=== PATIENT | female | born 1960 | race Two or more races ===

== ENCOUNTER 2017-01-11 09:19 | Emergency (ER) | payer MEDICAID, OTHER ==
[~2017-01-11] VITALS: Ht 152.4 cm; Wt 59.0 kg
[~2017-01-11 09:19] MED LIST: ALBUTEROL SULF8.5 GM INH; CELEXA20 MG PO; CIPRO500 MG PO; CIPROFLOXACIN500 M2 ORAL; IBUPROFEN600 MG ORAL; KLONOPIN0.5 MG PO; PHENAZOPYRIDIN100 MG ORAL; PROMETHAZINE-C118 M1 ORAL; TAMIFLU75 MG ORAL; TYLENOL EXTRA500 MG ORAL; ZOFRAN4 MG ORAL
[2017-01-11 09:25] VITALS: BP 107/73
[2017-01-11] MEDS ORDERED: NKM (09:29)
[2017-01-11 09:59] LABS: APPEARANCE,URINE CLEAR; KETONES,URINE NEGATIVE (NEGATIVE); LEUKOCYTE ESTERASE ,URINE 1+ (NEGATIVE); NITRITE,URINE NEGATIVE (NEGATIVE); PH,URINE 7 (4.5-8.0); PROTEIN,URINE NEGATIVE (NEGATIVE); UROBILINOGEN,URINE NORMAL MG/DL (0.0-1.0)
[2017-01-11 10:10] LABS: BACTERIA,URINE FEW /HPF; RBC,URINE 15-20 /HPF (0 - 2); SQUAMOUS EPITHELIAL CELL,UR FEW /LPF (NONE/OCC)
[2017-01-11] MEDS ORDERED: NITROFURANTOIN100 M2 ORAL (10:48)
[2017-01-11] MEDS ORDERED: ZOFRAN ODT4 MG ORAL (10:56)
[2017-01-11] MEDS ORDERED: PHENAZOPYRIDIN100 MG ORAL (10:56)
[2017-01-11 11:05] VITALS: BP 107/73
--- NOTE | 2017-01-12 08:04 | Emergency Room Report ---
History of Present Illness General Chief Complaint: Female Urogenital Problems Source: Patient Present Illness HPI Patient presents with complaints of dysuria or frequency patient feels that symptoms have been ongoing now for the past 7 days Patient also reported that she was having increased nausea with this Lower back cramping denies any fevers or chills Denies any chest pain or shortness of breath denies any fall or trauma Denies any blood in the urine Allergies: Coded Allergies: No Known Allergies (Unverified , 09/26/12) Patient History Past Medical History: see triage record Pertinent Family History: none Last Menstrual Period: menopause Reviewed Nursing Documentation: PMH: Agreed, PSxH: Agreed Nursing Documentation-PMH Past Medical History: No Stated History Review of Systems All Other Systems: negative except mentioned in HPI Physical Exam Vital Signs Date Time Temp Pulse Resp B/P Pulse Ox O2 Delivery O2 Flow Rate FiO2 01/11/17 09:25 99.1 81 16 107/73 96 Room Air Sp02 EP Interpretation: reviewed, normal General Appearance: well appearing, no apparent distress Head: normocephalic, atraumatic Eyes: bilateral eye EOMI, bilateral eye PERRL ENT: hearing grossly normal, normal pharynx, TMs + canals normal, uvula midline Neck: full range of motion, supple, no meningismus, no bony tend Respiratory: lungs clear, normal breath sounds, no rhonchi, no respiratory distress, no retraction, no accessory muscle use Cardiovascular #1: normal peripheral pulses, regular rate, rhythm, no edema, no gallop, no JVD, no murmur Gastrointestinal: normal bowel sounds, soft, no mass, no organomegaly, non- distended, no guarding, no hernia, no pulsatile mass, no rebound, other - Mild discomfort over the suprapubic area Genitourinary: no CVA tenderness Musculoskeletal: normal inspection Neurologic: oriented x3, responsive, unarmed security officer III-XII nml as tested, motor strength/ tone normal, sensory intact Psychiatric: mood/affect normal Skin: normal color, no rash, warm/dry, palpation normal Lymphatic: normal inspection, no adenopathy Medical Decision Making Diagnostic Impression: Primary Impression: uti ER Course Patient's urine sample shows small amount of blood This is concerning for possible early infectious pathology Given the clinical exam and the history Patient will have initial conservative trial on oral antibiotics however it is discussed With her and the patient's daughter, that with any worsening symptoms they to return to the emergency room more emergently, as this could be signs of other intra-abdominal pathology Labs Test 01/11/17 09:35 Urine Color Pale yellow Urine Appearance Clear Urine pH 7 (4.5-8.0) Urine Specific [place] 1.005 (1.005-1.035) Urine Protein Negative (NEGATIVE) Urine Glucose (UA) Negative (NEGATIVE) Urine Ketones Negative (NEGATIVE) Urine Occult Blood 3+ (NEGATIVE) Urine Nitrite Negative (NEGATIVE) Urine Bilirubin Negative (NEGATIVE) Urine Urobilinogen Normal MG/DL (0.0-1.0) Urine Leukocyte Esterase 1+ (NEGATIVE) Urine RBC 15-20 /HPF (0 - 2) Urine WBC 2-4 /HPF (0 - 2) Urine Squamous Epithelial Cells Few /LPF (NONE/OCC) Urine Bacteria Few /HPF (NONE) Last Vital Signs Date Time Temp Pulse Resp B/P Pulse Ox O2 Delivery O2 Flow Rate FiO2 01/11/17 11:05 99.1 81 16 107/73 96 Room Air Status: unchanged Disposition: HOME, SELF-CARE Condition: Stable Scripts Phenazopyridine Hcl* (PYRIDIUM*) 100 Mg Tablet 100 MG ORAL THREE TIMES A DAY, #9 TAB Prov: GILLIAN ZAVALA D.O. 01/11/17 Ondansetron Odt* (ZOFRAN ODT*) 4 Mg Tab.rapdis 4 MG ORAL Q6H Y for Nausea & Vomiting, #12 TAB 0 Refills Prov: GILLIAN ZAVALA D.O. 01/11/17 Nitrofurantoin Monohyd/M-Cryst* (MACROBID 100 MG*) 100 Mg Capsule 100 MG ORAL EVERY 12 HOURS, #10 CAP Prov: GILLIAN ZAVALA D.O. 01/11/17 Referrals: [facility],REFERRING (PCP) Patient Instructions: Urinary Tract Infection Additional Instructions: Patient is provided with the discharge instructions notified to follow up with primary doctor in the next 2-3 days otherwise return to the er with any worsening symptoms. Please note that this report is being documented using Viewdle technology. This can lead to erroneous entry secondary to incorrect interpretation by the dictating instrument. GILLIAN ZAVALA D.O. Jan 12, 2017 08:04
== END 2017-01-11 11:05 | disposition home or self-care (01) ==
LOC: EMR 10:55
DX: N39.0 Urinary tract infection, site not specified (principal)
CPT/HCPCS: 81003; 99284

== ENCOUNTER 2017-02-04 10:56 | Emergency (ER) | payer MEDICAID, OTHER ==
[~2017-02-04] VITALS: Ht 152.4 cm; Wt 59.0 kg
[~2017-02-04 10:56] MED LIST changes: +NITROFURANTOIN100 M2 ORAL; +NKM; +ZOFRAN ODT4 MG ORAL
[2017-02-04] MEDS ORDERED: CIPRO500 MG PO (11:08)
[2017-02-04 11:18] VITALS: BP 110/70
[2017-02-04] MEDS ORDERED: Tylenol #3 tab (300mg/30mg) ORAL ONE (11:30)
[2017-02-04 11:32] LABS: APPEARANCE,URINE CLOUDY; KETONES,URINE NEGATIVE (NEGATIVE); LEUKOCYTE ESTERASE ,URINE 3+ (NEGATIVE); NITRITE,URINE NEGATIVE (NEGATIVE); PH,URINE 6 (4.5-8.0); PROTEIN,URINE 1+ (NEGATIVE); UROBILINOGEN,URINE NORMAL MG/DL (0.0-1.0)
[2017-02-04 11:49] LABS: WBC,URINE 30-40 /HPF (0 - 2)
[2017-02-04 11:50] LABS: BACTERIA,URINE MODERATE /HPF; SQUAMOUS EPITHELIAL CELL,UR MANY /LPF (NONE/OCC)
[2017-02-04] MEDS ORDERED: LEVAQUIN750 MG ORAL (12:48)
[2017-02-04] MEDS ORDERED: IBUPROFEN600 MG ORAL (12:48)
[2017-02-04 12:55] VITALS: BP_SYST 110; BP_SYST 99; BP_DIAS 66; BP_DIAS 70
--- NOTE | 2017-02-04 13:39 | Emergency Room Report ---
History of Present Illness General Chief Complaint: Pelvic Pain Source: Patient Present Illness HPI 56-year-old female presents ED for evaluation. Patient states that last one month she's had flank pain on the left side radiating to the groin. Notes dysuria and hematuria. Pain is throbbing, 5/10. Denies fevers or chills. Denies nausea or vomiting. She states she was seen here approximately one month ago and noted to have UTI. Patient was prescribed antibiotics. States the symptoms did not improve and saw her PMD on January 25. was prescribed Keflex and states that the medication makes her very nauseous and she is unable to complete the prescription. No other aggravating or relieving factors. Denies any other associated symptoms Allergies: Coded Allergies: No Known Allergies (Unverified , 09/26/12) Patient History Past Medical History: none Past Surgical History: none Pertinent Family History: none Social History: Denies: alcohol use, drug use, smoking Last Menstrual Period: menopause Now: No Immunizations: UTD Reviewed Nursing Documentation: PMH: Agreed, PSxH: Agreed Nursing Documentation-PMH Past Medical History: No Stated History Review of Systems All Other Systems: negative except mentioned in HPI Physical Exam Vital Signs Date Time Temp Pulse Resp B/P Pulse Ox O2 Delivery O2 Flow Rate FiO2 02/04/17 10:58 98.2 87 16 110/70 96 Room Air Sp02 EP Interpretation: reviewed, normal General Appearance: no apparent distress, alert, GCS 15, non-toxic Head: normocephalic Eyes: bilateral eye PERRL, bilateral eye normal inspection ENT: normal ENT inspection Neck: normal inspection Respiratory: chest non-tender, lungs clear, normal breath sounds, speaking full sentences Cardiovascular #1: regular rate, rhythm, no edema Gastrointestinal: normal bowel sounds, non tender, soft, non-distended, no guarding, no rebound Rectal: deferred Genitourinary: CVA tenderness (L) Musculoskeletal: normal inspection Neurologic: alert, oriented x3, responsive, motor strength/tone normal, sensory intact, speech normal Psychiatric: normal inspection Skin: normal inspection Lymphatic: normal inspection Medical Decision Making Diagnostic Impression: Primary Impression: Pyelonephritis ER Course Hospital Course 56-year-old female presents to ED complaining of dysuria with L flank pain Differential diagnoses include: UTI, cystitis, pyelonephritis, kidney stone Clinical course Patient placed on stretcher. After initial history and physical I ordered UA, CT A/P UA + bacteria. CT abdomen pelvis shows no evidence of kidney stone Patient was seen here in early January was prescribed Macrobid. Patient is currently on Keflex but unable to complete the prescription because she is unable to tolerate medication. We will stop the Keflex and try Levaquin I tell the patient and family that if she is unable to tolerate medication this time she will need to return to ER and be admitted for IV antibiotics Diagnosis - pyelonephritis Stable and discharged home with prescriptions for Rx Keflex. Instructed to followup with PMD. Return to ED if symptoms recur or worsen Labs Test 02/04/17 11:20 Urine Color Yellow Urine Appearance Cloudy Urine pH 6 (4.5-8.0) Urine Specific [place] 1.015 (1.005-1.035) Urine Protein 1+ (NEGATIVE) Urine Glucose (UA) Negative (NEGATIVE) Urine Ketones Negative (NEGATIVE) Urine Occult Blood 3+ (NEGATIVE) Urine Nitrite Negative (NEGATIVE) Urine Bilirubin Negative (NEGATIVE) Urine Urobilinogen Normal MG/DL (0.0-1.0) Urine Leukocyte Esterase 3+ (NEGATIVE) Urine RBC 10-15 /HPF (0 - 2) Urine WBC 30-40 /HPF (0 - 2) Urine Squamous Epithelial Cells Many /LPF (NONE/OCC) Urine Bacteria Moderate /HPF (NONE) CT/MRI/US Diagnostic Results CT/MRI/US Diagnostic Results : Imaging Test Ordered: CT A/P Impression CT A/P - no acute process Last Vital Signs Date Time Temp Pulse Resp B/P Pulse Ox O2 Delivery O2 Flow Rate FiO2 02/04/17 12:55 98.2 76 16 110/70 96 Room Air Status: improved Disposition: HOME, SELF-CARE Condition: Stable Scripts Ibuprofen* (MOTRIN*) 600 Mg Tablet 600 MG ORAL Q8H Y for For Pain, #30 TAB 0 Refills Prov: ALEJANDRA CUTLER M.D. 02/04/17 Levofloxacin* (LEVAQUIN*) 750 Mg Tablet 750 MG ORAL DAILY for 5 Days, TAB Prov: ALEJANDRA CUTLER M.D. 02/04/17 Patient Instructions: Pyelonephritis, Adult, [id number] ALEJANDRA CUTLER M.D. Feb 04, 2017 13:39
--- NOTE | 2017-02-05 08:32 | Diagnostic Imaging Report ---
Indication: 56-year-old female with pelvic pain radiating to the flank, recent treatment for urinary tract infection Technique: Spiral acquisitions obtained through the abdomen and pelvis. No oral contrast utilized, per emergency room physician request No IV contrast utilized, per referring physician request.. Multiplanar reconstructions were generated. Total dose length product 624 mGycm. CTDIvol(s) 13 mGy. Dose reduction achieved using automated exposure control Comparison: 08/02/2015 Findings: The appendix is normal. There are few colonic diverticula. No evidence of diverticulitis. No small bowel distention. No free or loculated intraperitoneal air of fluid is evident. Distal esophagus, stomach, duodenum are unremarkable. Lack of IV contrast limits assessment of the solid organs. The gallbladder demonstrates a small gallstone. The liver, bile ducts, pancreas, spleen, adrenals, kidneys are all unremarkable. No retroperitoneal or mesenteric mass or adenopathy. No pelvic mass or adenopathy. Tubal ligation clips are noted. The included lung bases demonstrate posterior dependent atelectatic changes. The bones demonstrate evidence of old T11 compression fracture with evidence of prior vertebral augmentation procedure, also previously reported. Compared to the prior study, no significant interim change Impression: No acute process Cholelithiasis Diverticulosis Other findings as noted, including prior tubal ligation, old T11 compression fracture with evidence of prior vertebral indication procedure, dependent pulmonary parenchymal atelectatic changes This agrees with the preliminary interpretation provided overnight by Dr. Barbosa The CT scanner at [facility] is accredited by the [employer] and the scans are performed using protocols designed to limit radiation exposure to as low as reasonably achievable to attain images of sufficient resolution adequate for diagnostic evaluation.
== END 2017-02-04 12:55 | disposition home or self-care (01) ==
LOC: EMR 11:34
DX: N12 Tubulo-interstitial nephritis, not specified as acute or chronic (principal); K80.20 Calculus of gallbladder without cholecystitis without obstruction; K57.90 Diverticulosis of intestine, part unspecified, without perforation or abscess without bleeding
CPT/HCPCS: 74176; 81003; 87086; 99284

== ENCOUNTER 2017-10-25 08:56 | Emergency (ER) | payer MEDICAID, OTHER ==
[~2017-10-25] VITALS: Ht 152.4 cm; Wt 61.2 kg
[~2017-10-25 08:56] MED LIST changes: +LEVAQUIN750 MG ORAL
[2017-10-25] MEDS ORDERED: AUGMENTIN 875-1 EAC1 ORAL (09:06)
[2017-10-25] MEDS ORDERED: TESSALON PERLE100 MG ORAL (09:34)
[2017-10-25] MEDS ORDERED: TAMIFLU75 MG ORAL (09:34)
[2017-10-25 09:45] VITALS: BP 151/92
--- NOTE | 2017-10-25 09:45 | Emergency Room Report ---
History of Present Illness General Chief Complaint: Flu Like Symptoms Source: Patient Present Illness HPI 57-year-old female presents with fever, chills, cough, runny nose for 4 days. Cough is productive with clear phlegm. Pt still eating/drinking well. +sick contacts. No recent travel. No SOB, cp, abdominal pain, n/v/d. Allergies: Coded Allergies: No Known Allergies (Unverified , 09/26/12) Patient History Past Medical History: see triage record Past Surgical History: none Pertinent Family History: none Reviewed Nursing Documentation: PMH: Agreed, PSxH: Agreed Nursing Documentation-PMH Past Medical History: No History, Except For Review of Systems All Other Systems: negative except mentioned in HPI Physical Exam Vital Signs Date Time Temp Pulse Resp B/P (MAP) Pulse Ox O2 Delivery O2 Flow Rate FiO2 10/25/17 09:01 99.5 91 16 151/92 95 Room Air Sp02 EP Interpretation: reviewed, normal General Appearance: alert, GCS 15, non-toxic, mild distress Head: normocephalic, atraumatic Eyes: bilateral eye normal inspection, bilateral eye PERRL, bilateral eye EOMI ENT: normal ENT inspection, normal pharynx, normal voice, moist mucus membranes Neck: normal inspection, full range of motion, supple Respiratory: normal inspection, lungs clear, normal breath sounds, no respiratory distress, no retraction, no wheezing, speaking full sentences, chest symmetrical Cardiovascular #1: normal inspection, regular rate, rhythm, no edema, normal capillary refill Cardiovascular #2: 2+ radial (R), 2+ radial (L) Gastrointestinal: normal inspection, non tender, soft, non-distended, no guarding Musculoskeletal: normal inspection, back normal, normal range of motion, non- tender Neurologic: normal inspection, alert, oriented x3, responsive, motor strength/ tone normal, sensory intact, normal gait, speech normal Psychiatric: normal inspection, judgement/insight normal, memory normal Skin: normal inspection, normal color, no rash, warm/dry, well hydrated, normal turgor Medical Decision Making Diagnostic Impression: Primary Impression: Influenza-like symptoms ER Course 57-year-old female p/w fever, chills, runny nose, cough Appears non- toxic, well hydrated, tolerating PO DDX: Viral URI / pneumonia Plan: Motrin ER course: Pt stable in ED, remains nontoxic appearing, no sob. Tolerating PO Chest x-ray negative Disposition: Patient discharged to home with Tessergey Powers and Tamiflu Patient instructed to follow up with PMD in 1 week. Also instructed to take motrin/tylenol at home. Very strict return precautions discussed with patient such as intractable fever and chills, unable to eat or drink, severe chest pain or shortness of breath. Patient verbalized understanding and agrees with plan. Please note that this Emergency Department Report was dictated using [employer]'tegold frame assembler technology software, occasionally this can lead to erroneous entry secondary to interpretation by the dictation equipment Chest X-ray CXR: Ordered: Yes 1 view Indication: Cough EP interpretation: Yes Interpretation: No consolidation, no effusion, no PTX, no acute cardiopulmonary disease Impression: No acute disease Electronically signed by Alex Mccormack MD Last Vital Signs Date Time Temp Pulse Resp B/P (MAP) Pulse Ox O2 Delivery O2 Flow Rate FiO2 10/25/17 09:16 91 16 Room Air 10/25/17 09:01 99.5 151/92 95 Disposition: HOME, SELF-CARE Condition: Improved Scripts Benzonatate* (TESSALON GEMMA*) 100 Mg Capsule 100 MG ORAL THREE TIMES A DAY, #21 PERLE Prov: Alex Mccormack M.D. 10/25/17 Oseltamivir Phosphate (Tamiflu) 75 Mg Capsule 75 MG ORAL TWICE A DAY for 5 Days, #10 CAP 0 Refills Prov: Alex Mccormack M.D. 10/25/17 Patient Instructions: Viral Respiratory Infection, [id number] Alex Mccormack M.D. Oct 25, 2017 09:45
--- NOTE | 2017-10-25 09:49 | Diagnostic Imaging Report ---
Indication: Dyspnea Comparison: 08/25/2016 A single view chest radiograph was obtained. Findings: Cardiomediastinal appearance is within normal limits for age. Pulmonary vascularity is appropriate. The diaphragmatic contour is smooth and costophrenic angles are sharp. No pleural effusions are identified. The bones are slightly osteopenic. Impression: No acute findings
== END 2017-10-25 09:45 | disposition home or self-care (01) ==
LOC: EMR 09:35
DX: J11.1 Influenza due to unidentified influenza virus with other respiratory manifestations (principal)
CPT/HCPCS: 71045; 99283

== ENCOUNTER 2018-08-20 17:24 | Emergency (ER) | payer MEDICAID, OTHER ==
[~2018-08-20] VITALS: Ht 152.4 cm; Wt 59.0 kg
[~2018-08-20 17:24] MED LIST changes: +AUGMENTIN 875-1 EAC1 ORAL; +TESSALON PERLE100 MG ORAL
[2018-08-20] MEDS ORDERED: FOSAMAX70 MG ORAL (17:34)
--- NOTE | 2018-08-20 18:00 | Emergency Room Report ---
History of Present Illness General Chief Complaint: Flu Like Symptoms Source: Patient, Medical Record Present Illness HPI 57-year-old female with history of osteoporosis p/w chest pain and shortness of breath for one month. Chest pain started while after coughing. Localized to substernal area, no radiation to back or other areas, sharp in nature, gradual in onset, multiple episodes. + SOB. Denies palpitations, diaphoresis, n/v. Patient also has had a chronic cough for the last 1 month with yellow and clear sputum Denies fever, chills,abd pain. Denies trauma. Per daughter patient has had a stress test in the past which was negative Patient has never had a cardiac catheterization. Denies smoking, no family history of cardiac disease at a young age. No history of DVT or PE, no recent surgeries or immobilization Allergies: Coded Allergies: No Known Allergies (Unverified , 09/26/12) Patient History Past Medical History: see triage record Past Surgical History: none Pertinent Family History: none Last Menstrual Period: menopause Reviewed Nursing Documentation: PMH: Agreed; PSxH: Agreed Nursing Documentation-PMH Past Medical History: No History, Except For Hx Cardiac Problems: No - Back surgery in 2013 due to fall injury, osteoporosis Review of Systems All Other Systems: negative except mentioned in HPI Physical Exam Vital Signs Date Time Temp Pulse Resp B/P (MAP) Pulse Ox O2 Delivery O2 Flow Rate FiO2 08/20/18 17:25 98.1 65 18 117/72 98 Room Air Sp02 EP Interpretation: reviewed, normal General Appearance: alert, GCS 15, non-toxic, mild distress Head: normocephalic, atraumatic Eyes: bilateral eye normal inspection, bilateral eye PERRL, bilateral eye EOMI ENT: normal ENT inspection, normal pharynx, normal voice, moist mucus membranes Neck: normal inspection, full range of motion, supple Respiratory: normal inspection, lungs clear, normal breath sounds, no respiratory distress, no retraction, no wheezing, speaking full sentences, chest symmetrical Cardiovascular #1: normal inspection, regular rate, rhythm, no edema, normal capillary refill Cardiovascular #2: 2+ radial (R), 2+ radial (L) Gastrointestinal: normal inspection, non tender, soft, non-distended, no guarding Musculoskeletal: normal inspection, back normal, normal range of motion, non- tender Neurologic: normal inspection, alert, oriented x3, responsive, motor strength/ tone normal, sensory intact, normal gait, speech normal Psychiatric: normal inspection, judgement/insight normal, memory normal Skin: normal inspection, normal color, no rash, warm/dry, well hydrated, normal turgor Medical Decision Making Diagnostic Impression: Primary Impression: Urinary tract infection Additional Impression: Chest pain ER Course 49-year-old female p/w CP DDX: ACS vs. CHF vs. pneumonia vs. gastritis/GERD vs. pneumothorax chest wall pain secondary to coughing Plan: IV access, obtain labs including troponin, EKG, CXR ASA, pain control with nitro / morphine Anticipate admission ER course: Labs: troponin negative Patient given ASA. Patient remained chest pain free during ED stay. given abx for uti trop neg x 2 Disposition: *HEART score = 1 pts indicated low risk for major acute cardiac event. Patient will be discharged to home. DC with ABX for uti Strict precautions discussed with patient on when to emergently return to the ED : this includes worsening/severe chest pain, palpitations, shortness of breath, syncopal episodes, fever or chills, which may indicate severe illness. Patient verbalized understanding. Patient instructed to follow up with their PMD within the next 2 days. Patient also instructed to follow up with a senior escrow officer within 2 days for possible outpatient stress test. Patient agrees with plan. Please note that this Emergency Department Report was dictated using MotorExchangeknot cutter technology software, occasionally this can lead to erroneous entry secondary to interpretation by the dictation equipment. EKG Diagnostic Results EP Interpretation: Yes Rate: 57 Rhythm: NSR ST Segments: No acute changes ASA given to patient: yes Rhythm Strip EP Interpretation: Yes Rate: 70 Rhythm: NSR, no PVCs, no ectopy Chest X-ray CXR: Ordered: Yes 1 view Indication: Chest pain EP interpretation: Yes Interpretation: No consolidation, no effusion, no PTX, no acute cardiopulmonary disease Impression: No acute disease Electronically signed by Alex Mccormack MD Laboratory Tests Test 08/20/18 18:05 08/20/18 20:00 White Blood Count 8.1 K/UL (4.8-10.8) Red Blood Count 4.29 M/UL (4.20-5.40) Hemoglobin 13.3 G/DL (12.0-16.0) Hematocrit 38.3 % (37.0-47.0) Mean Corpuscular Volume 89 FL (80-99) Mean Corpuscular Hemoglobin 31.1 PG (27.0-31.0) H Mean Corpuscular Hemoglobin Concent 34.9 G/DL (32.0-36.0) Red Cell Distribution Width 12.2 % (11.6-14.8) Platelet Count 250 K/UL (150-450) Mean Platelet Volume 7.6 FL (6.5-10.1) Neutrophils (%) (Auto) 54.4 % (45.0-75.0) Lymphocytes (%) (Auto) 35.1 % (20.0-45.0) Monocytes (%) (Auto) 7.0 % (1.0-10.0) Eosinophils (%) (Auto) 2.4 % (0.0-3.0) Basophils (%) (Auto) 1.0 % (0.0-2.0) Urine Color Pale yellow Urine Appearance Clear Urine pH 6.5 (4.5-8.0) Urine Specific [place] 1.020 (1.005-1.035) Urine Protein Negative (NEGATIVE) Urine Glucose (UA) Negative (NEGATIVE) Urine Ketones Negative (NEGATIVE) Urine Blood 2+ (NEGATIVE) H Urine Nitrite Negative (NEGATIVE) Urine Bilirubin Negative (NEGATIVE) Urine Urobilinogen Normal MG/DL (0.0-1.0) Urine Leukocyte Esterase 2+ (NEGATIVE) H Urine RBC 5-10 /HPF (0 - 2) H Urine WBC 10-15 /HPF (0 - 2) H Urine Squamous Epithelial Cells Moderate /LPF (NONE/OCC) H Urine Amorphous Sediment Few /LPF (NONE) H Urine Bacteria Moderate /HPF (NONE) H Sodium Level 141 MMOL/L (136-145) Potassium Level 3.6 MMOL/L (3.5-5.1) Chloride Level 106 MMOL/L (98-107) Carbon Dioxide Level 27 MMOL/L (21-32) Anion Gap 8 mmol/L (5-15) Blood Urea Nitrogen 14 mg/dL (7-18) Creatinine 0.9 MG/DL (0.55-1.30) Estimate Glomerular Filtration Rate > 60 mL/min (>60) Glucose Level 136 MG/DL (74-106) H Calcium Level 9.1 MG/DL (8.5-10.1) Total Bilirubin 0.1 MG/DL (0.2-1.0) L Aspartate Amino Transferase (AST) 14 U/L (15-37) L Alanine Aminotransferase (ALT) 23 U/L (12-78) Alkaline Phosphatase 85 U/L (46-116) Troponin I 0.000 ng/mL (0.000-0.056) 0.000 ng/mL (0.000-0.056) Pro-B-Type Natriuretic Peptide 116 pg/mL (0-125) Total Protein 7.5 G/DL (6.4-8.2) Albumin 3.4 G/DL (3.4-5.0) Globulin 4.1 g/dL Albumin/Globulin Ratio 0.8 (1.0-2.7) L Last Vital Signs Date Time Temp Pulse Resp B/P (MAP) Pulse Ox O2 Delivery O2 Flow Rate FiO2 08/20/18 17:45 65 18 Room Air 08/20/18 17:25 98.1 117/72 98 Disposition: HOME, SELF-CARE Condition: Improved Scripts Cephalexin* (KEFLEX*) 500 Mg Capsule 500 MG ORAL EVERY 6 HOURS for 7 Days, #28 CAP Prov: Alex Mccormack M.D. 08/20/18 Alex Mccormack M.D. Aug 20, 2018 18:00
[2018-08-20 18:42] LABS: APPEARANCE,URINE CLEAR; BILIRUBIN, URINE NEGATIVE (NEGATIVE); COLOR,URINE PALE YELLOW; GLUCOSE, URINE (UA) NEGATIVE (NEGATIVE); KETONES,URINE NEGATIVE (NEGATIVE); LEUKOCYTE ESTERASE ,URINE 2+ (NEGATIVE); NITRITE,URINE NEGATIVE (NEGATIVE); PH,URINE 6.5 (4.5-8.0); PROTEIN,URINE NEGATIVE (NEGATIVE); UROBILINOGEN,URINE NORMAL MG/DL (0.0-1.0)
[2018-08-20 18:53] LABS: ANION GAP 8 mmol/L (5-15); BLOOD UREA NITROGEN 14 mg/dL (7-18); CALCIUM 9.1 MG/DL (8.5-10.1); CARBON DIOXIDE 27 MMOL/L (21-32); CHLORIDE 106 MMOL/L (98-107); CREATININE 0.9 MG/DL (0.55-1.30); POTASSIUM 3.6 MMOL/L (3.5-5.1); SODIUM 141 MMOL/L (136-145)
[2018-08-20 18:54] LABS: EOSINOPHILS % (AUTO) 2.4 % (0.0-3.0); HEMATOCRIT 38.3 % (37.0-47.0); HEMOGLOBIN 13.3 G/DL (12.0-16.0); LYMPHOCYTES % (AUTO) 35.1 % (20.0-45.0); MEAN CORPUSCULAR VOLUME 89 FL (80-99); NEUTROPHILS % (AUTO) 54.4 % (45.0-75.0); PLATELET COUNT 250 K/UL (150-450); RED BLOOD COUNT 4.29 M/UL (4.20-5.40); RED CELL DISTRIBUTION WIDTH 12.2 % (11.6-14.8); WHITE BLOOD COUNT 8.1 K/UL (4.8-10.8)
[2018-08-20 19:04] LABS: ALANINE AMINOTRANSFERASE 23 U/L (12-78); ALBUMIN 3.4 G/DL (3.4-5.0); ALBUMIN/GLOBULIN RATIO 0.8 (1.0-2.7); ALKALINE PHOSPHATASE 85 U/L (46-116); ASPARTATE AMINO TRANSFERASE 14 U/L (15-37); BILIRUBIN,TOTAL 0.1 MG/DL (0.2-1.0)
[2018-08-20 19:07] VITALS: BP 120/78
[2018-08-20] MEDS ORDERED: CEPHALEXIN500 MG ORAL (19:11)
[2018-08-20] MEDS ORDERED: cefTRIAXone 1 GM in NS 55 ML IVPB ONE (19:15)
[2018-08-20 20:56] VITALS: BP 115/69
[2018-08-20 21:00] VITALS: BP 115/69
--- NOTE | 2018-08-21 11:00 | Diagnostic Imaging Report ---
Indication: Shortness of breath Technique: One view of the chest Comparison: 10/25/2017 Findings: The lungs and pleural spaces are clear. The heart size is normal. Again demonstrated is evidence of prior vertebral augmentation in the lower thoracic spine. No significant change Impression: No acute process
--- NOTE | 2018-08-21 16:59 | Cardiology Report ---
APPROVED REPORT EKG Measurement Heart [id number] Sinus bradycardia Otherwise normal ECG
== END 2018-08-20 21:05 | disposition home or self-care (01) ==
LOC: EMR 18:33
DX: N39.0 Urinary tract infection, site not specified (principal); R07.9 Chest pain, unspecified
CPT/HCPCS: 36415; 71045; 80053; 81003; 83880; 84484; 85025; 87086; 93005; 96365; 99284; J0696

== ENCOUNTER 2018-10-12 12:01 | Emergency (ER) | payer OTHER ==
[~2018-10-12] VITALS: Ht 152.4 cm; Wt 61.2 kg
[~2018-10-12 12:01] MED LIST changes: +CEPHALEXIN500 MG ORAL; +FOSAMAX70 MG ORAL
[2018-10-12 12:13] VITALS: BP 124/79
--- NOTE | 2018-10-12 12:15 | NUR ---
ED Nurse Note: burning sensation duirng urination X 3 weeks with foul smelling urine
--- NOTE | 2018-10-12 12:27 | NUR ---
urine specimen sent
--- NOTE | 2018-10-12 12:46 | Emergency Room Report ---
History of Present Illness General Chief Complaint: Female Urogenital Problems Source: Medical Record Present Illness HPI 58-year-old female with no significant past medical history here complaining of the repeat weeks of painful urination, urinary frequency, urinary incontinence. Patient reports that even when she is not urinating she feels pain and pressure in the vaginal area. She also feels like something pushing down inside her vaginal canal. His hemorrhagic diarrhea, fever, chills, nausea vomiting. Denies flank pain. Patient reports when she feels cold she feels that she cannot hold onto her urine, however denies loss of urinary continence when sneezing or lifting heavy objects. Patient has had 2 live births one C- section. Denies chest pain, SOB, palpitation, and all other associated symptoms Allergies: Coded Allergies: No Known Allergies (Unverified , 09/26/12) Patient History Past Medical History: see triage record Past Surgical History: none Pertinent Family History: none Now: No Immunizations: UTD Reviewed Nursing Documentation: PMH: Agreed; PSxH: Agreed Nursing Documentation-PMH Hx Cardiac Problems: No - Back surgery in 2013 due to fall injury, osteoporosis Review of Systems All Other Systems: negative except mentioned in HPI Physical Exam Vital Signs Date Time Temp Pulse Resp B/P (MAP) Pulse Ox O2 Delivery O2 Flow Rate FiO2 10/12/18 12:09 97.7 64 18 124/79 96 Room Air Sp02 EP Interpretation: reviewed, normal General Appearance: normal inspection, well appearing, no apparent distress, alert, GCS 15 Head: normocephalic, atraumatic Eyes: bilateral eye normal inspection, bilateral eye PERRL ENT: normal ENT inspection, normal pharynx Neck: normal inspection, tender lateral Respiratory: normal inspection, lungs clear, no rhonchi, no wheezing Cardiovascular #1: normal inspection, regular rate, rhythm, no edema Cardiovascular #2: 2+ carotid (R), 2+ carotid (L) Gastrointestinal: normal inspection, tenderness - suprapubic Rectal: deferred Genitourinary: deferred Musculoskeletal: back normal, tender Neurologic: normal inspection, alert, oriented x3, responsive, sensory intact Psychiatric: normal inspection, judgement/insight normal, memory normal Skin: normal inspection, no rash, warm/dry Lymphatic: normal inspection, no adenopathy Medical Decision Making PA Attestation diagnosis and treatment plans were reviewed and discussed with supervising physician Dr. Barry Diagnostic Impression: Primary Impression: Urinary incontinence Additional Impressions: Uterine prolapse Hematuria ER Course 58-year-old female with no significant past medical history here complaining of the repeat weeks of painful urination, urinary frequency, urinary incontinence. Patient reports that even when she is not urinating she feels pain and pressure in the vaginal area. She also feels like something pushing down inside her vaginal canal. His hemorrhagic diarrhea, fever, chills, nausea vomiting. Denies flank pain. Patient reports when she feels cold she feels that she cannot hold onto her urine, however denies loss of urinary continence when sneezing or lifting heavy objects. Patient has had 2 live births one C- section. Denies chest pain, SOB, palpitation, and all other associated symptoms Ddx considered but are not limited to uterine prolapse, urinary incontinence, UTI, pyelonephritis, hematuria Vital signs: are WNL, pt. is afebrile H&PE are most consistent with hematuria, uterine prolapse, urinary incontinece ORDERS: UA ED INTERVENTIONS: None required at this time. DISCHARGE: At this time pt. is stable for d/c to home. Will provide printed patient care instructions, and any necessary prescriptions. Care plan and follow up instructions have been discussed with the patient prior to discharge. PT treated with antibiotics as given her age if infection is not detected in the urine it can turn into sepsis. She has blood in the urine red blood cells patient is post menopause also has possible uterine prolapse patient is highly advised to see promotional advertising assistant bladder ultrasound, renal ultrasound, and further assessment of the uterus doesn't be due to endometrial cancer, bladder cancer, or other abnormalities. RBC and blood in urine Last Vital Signs Date Time Temp Pulse Resp B/P (MAP) Pulse Ox O2 Delivery O2 Flow Rate FiO2 10/12/18 12:13 97.7 64 18 124/79 96 Room Air Disposition: HOME, SELF-CARE Condition: Stable Scripts Ibuprofen* (ADVIL*) 200 Mg Capsule 200 MG ORAL Q8HR, #20 CAP Prov: Eldon Mae 10/12/18 Nitrofurantoin Monohyd/M-Cryst* (MACROBID 100 MG*) 100 Mg Capsule 100 MG ORAL EVERY 12 HOURS for 7 Days, #14 CAP Prov: Eldon Mae 10/12/18 Referrals: NON PHYSICIAN (PCP) Patient Instructions: Hematuria, Adult, Kegel Exercises, Urinary Incontinence, Urinary Tract Infection Additional Instructions: follow-up with a promotional advertising assistant for further evaluation and possible uterine prolapse and also urinary incontinence to be treated with Kegle exercises and further followed up with primary care provider, follow with the primary care provider for ultrasound of bladder and kidneys for further assessment of Hematuria Eldon Mae Oct 12, 2018 12:46
[2018-10-12 13:16] LABS: BILIRUBIN, URINE NEGATIVE (NEGATIVE); GLUCOSE, URINE (UA) NEGATIVE (NEGATIVE); KETONES,URINE NEGATIVE (NEGATIVE); LEUKOCYTE ESTERASE ,URINE NEGATIVE (NEGATIVE); NITRITE,URINE NEGATIVE (NEGATIVE); PH,URINE 5 (4.5-8.0); PROTEIN,URINE NEGATIVE (NEGATIVE); UROBILINOGEN,URINE NORMAL MG/DL (0.0-1.0)
[2018-10-12 13:17] LABS: APPEARANCE,URINE CLEAR; COLOR,URINE YELLOW
[2018-10-12] MEDS ORDERED: NITROFURANTOIN100 M2 ORAL (13:25)
[2018-10-12 13:30] VITALS: BP 124/79
[2018-10-12] MEDS ORDERED: ADVIL200 M2 ORAL (13:30)
--- NOTE | 2018-10-12 13:38 | NUR ---
Patient is being discharged from medical care. Awake, alert and oriented x4. After care instructions, iwere given. Patient verbalized understanding of After care instructions. All medical devices such as ID band were removed. Patient ambulated out with all personal belongings with steady gait.
== END 2018-10-12 13:39 | disposition home or self-care (01) ==
LOC: EMR 12:26
DX: R32 Unspecified urinary incontinence (principal); N81.4 Uterovaginal prolapse, unspecified; R31.9 Hematuria, unspecified
CPT/HCPCS: 81001; 99283

== ENCOUNTER 2019-05-20 09:50 | Emergency (ER) | payer OTHER ==
[~2019-05-20] VITALS: Ht 160 cm; Wt 70.3 kg
[~2019-05-20 09:50] MED LIST changes: +ADVIL200 M2 ORAL
--- NOTE | 2019-05-20 09:50 | NUR ---
ED Nurse Note: Patient walked in to ER c/o general weakness and general body pain 04/16. pt aao x4 and ambulatory. skin clean and intact. calm and cooperative. pt is in gown and on conditioner tender. no acute distress noted.
[2019-05-20 10:05] VITALS: BP 132/73
[2019-05-20] MEDS ORDERED: LORazepam Inj 2mg/ml 1ml IV ONE (10:30)
[2019-05-20] MEDS ORDERED: Ketorolac 30mg Inj IV ONE (10:30)
--- NOTE | 2019-05-20 10:35 | NUR ---
ED Nurse Note: x-ray at bedside.
--- NOTE | 2019-05-20 10:35 | Emergency Room Report ---
History of Present Illness General Chief Complaint: General Complaint Source: Patient Present Illness HPI The patient presents with dizziness, dry mouth, shortness of breath weakness, anxiety, chest pressure and near syncope yesterday. She felt she was having an anxiety attack and took a medication that her doctor who prescribed (later determined to be Zoloft). It was extremely strong and made her feel that she was almost passing out. Today she still has shortness of breath, dry mouth and weakness. The patient has recurrent anxiety. In the past lorazepam is helped her quite a bit. She does not have that medication at this time. The last time labs were done in February she says they were normal including thyroid function tests. She also complains about dysuria at this time. There is no hematuria. The patient complains of back pain. 5 years ago she was in an accident. She had to have spine surgery. She slipped and fell. She denies any numbness down her legs. She does not have pain medication that she is taking at this time. The patient smokes socially. She denies drinking alcohol. She is employed as a [employer] teacher. Allergies: Coded Allergies: No Known Allergies (Unverified , 09/26/12) Patient History Past Medical History: see triage record Social History: Reports: smoking - Socially and rarely; Denies: alcohol use, drug use Social History Narrative Born in [place], nsh teacher Reviewed Nursing Documentation: PMH: Agreed; PSxH: Agreed Nursing Documentation-PM Past Medical History: No Stated History Hx Cardiac Problems: No - Back surgery in 2012 due to fall injury, osteoporosis Review of Systems All Other Systems: negative except mentioned in HPI Physical Exam Vital Signs Date Time Temp Pulse Resp B/P (MAP) Pulse Ox O2 Delivery O2 Flow Rate FiO2 05/20/19 10:09 98.4 58 16 118/74 (89) 94 Room Air Sp02 EP Interpretation: reviewed, normal General Appearance: well appearing, no apparent distress, GCS 15 Head: normocephalic Eyes: left eye other - Pterygium; bilateral eye PERRL, bilateral eye EOMI ENT: moist mucus membranes Neck: supple Respiratory: chest non-tender, lungs clear, normal breath sounds Cardiovascular #1: regular rate, rhythm Cardiovascular #2: 2+ radial (R) Gastrointestinal: normal inspection, normal bowel sounds, non tender, no mass, non-distended, overweight Musculoskeletal: back normal, gait/station normal, normal range of motion Neurologic: alert, oriented x3, motor strength/tone normal, DTRs symmetric, sensory intact, cerebellar normal, normal gait, speech normal Psychiatric: anxious Skin: no rash Medical Decision Making Diagnostic Impression: Primary Impression: Anxiety Additional Impressions: Dehydration Adverse reaction to Zoloft ER Course Patient presents with anxiety, chest pressure and dry mouth. Differential includes acute myocardial infarction, new onset diabetes, anxiety attack with hyperventilation, electrolyte imbalance, thyroid dysfunction amongst others. In addition she is complaining about dysuria we need to exclude urinary tract infection. Evaluation will be with EKG, chest x-ray and labs. The patient will be treated with IV hydration, Ativan and a small dose of Toradol because she has back pain. There are no red flag symptoms with the back pain and therefore no imaging is indicated at the moment. EKG normal sinus rhythm with left posterior fascicular block. Chest x-ray remarkable. Labs with normal white count. Glucose 130. BNP 216. Urinalysis without pyuria. Patient improved with treatment. No medical emergency at this time. The patient called home and determined that the medication she took 1 dose of was Zoloft. Discussed the fact that 1 dose potentially could cause adverse reactions like she had. She states that she is going to refuse to take any medication like this in the future. I discussed that if she starts off on a low dose and has it for at least 2 weeks that this may prevent adverse reactions from happening in the future. The patient is stable for outpatient observation and treatment. Laboratory Tests Test 05/20/19 10:15 05/20/19 10:40 White Blood Count 8.5 K/UL (4.8-10.8) Red Blood Count 4.80 M/UL (4.20-5.40) Hemoglobin 14.5 G/DL (12.0-16.0) Hematocrit 44.1 % (37.0-47.0) Mean Corpuscular Volume 92 FL (80-99) Mean Corpuscular Hemoglobin 30.2 PG (27.0-31.0) Mean Corpuscular Hemoglobin Concent 32.8 G/DL (32.0-36.0) Red Cell Distribution Width 12.7 % (11.6-14.8) Platelet Count 278 K/UL (150-450) Mean Platelet Volume 6.6 FL (6.5-10.1) Neutrophils (%) (Auto) 67.1 % (45.0-75.0) Lymphocytes (%) (Auto) 26.9 % (20.0-45.0) Monocytes (%) (Auto) 4.6 % (1.0-10.0) Eosinophils (%) (Auto) 0.4 % (0.0-3.0) Basophils (%) (Auto) 0.9 % (0.0-2.0) Prothrombin Time 10.5 SEC (9.30-11.50) Prothrombin Time INR 1.0 (0.9-1.1) PTT 26 SEC (23-33) Sodium Level 140 MMOL/L (136-145) Potassium Level 3.8 MMOL/L (3.5-5.1) Chloride Level 107 MMOL/L (98-107) Carbon Dioxide Level 24 MMOL/L (21-32) Anion Gap 9 mmol/L (5-15) Blood Urea Nitrogen 12 mg/dL (7-18) Creatinine 0.8 MG/DL (0.55-1.30) Estimate Glomerular Filtration Rate > 60 mL/min (>60) Glucose Level 130 MG/DL (74-106) H Calcium Level 9.1 MG/DL (8.5-10.1) Total Bilirubin 0.3 MG/DL (0.2-1.0) Aspartate Amino Transferase (AST) 17 U/L (15-37) Alanine Aminotransferase (ALT) 23 U/L (12-78) Alkaline Phosphatase 69 U/L (46-116) Total Creatine Kinase 80 U/L (26-308) Troponin I 0.000 ng/mL (0.000-0.056) Pro-B-Type Natriuretic Peptide 215 pg/mL (0-125) H Total Protein 7.7 G/DL (6.4-8.2) Albumin 3.8 G/DL (3.4-5.0) Globulin 3.9 g/dL Albumin/Globulin Ratio 1.0 (1.0-2.7) Urine Color Yellow Urine Appearance Clear Urine pH 5 (4.5-8.0) Urine Specific [place] 1.015 (1.005-1.035) Urine Protein Negative (NEGATIVE) Urine Glucose (UA) Negative (NEGATIVE) Urine Ketones Negative (NEGATIVE) Urine Blood 3+ (NEGATIVE) H Urine Nitrite Negative (NEGATIVE) Urine Bilirubin Negative (NEGATIVE) Urine Urobilinogen Normal MG/DL (0.0-1.0) Urine Leukocyte Esterase Negative (NEGATIVE) Urine RBC 5-10 /HPF (0 - 2) H Urine WBC 0-2 /HPF (0 - 2) Urine Squamous Epithelial Cells Few /LPF (NONE/OCC) Urine Bacteria Occasional /HPF (NONE) EKG Diagnostic Results Rate: normal Rhythm: NSR ST Segments: no acute changes - Left posterior fascicular block Rhythm Strip Diag. Results EP Interpretation: yes Rhythm: NSR, no PVC's, no ectopy Chest X-Ray Diagnostic Results Chest X-Ray Diagnostic Results : Chest X-Ray Ordered: Yes # of Views/Limited/Complete: 1 View Indication: Other EP Interpretation: Yes Interpretation: no consolidation, no effusion, no pneumothorax Impression: No acute disease Electronically Signed by: Electronically signed by Jack Murphy MD Last Vital Signs Date Time Temp Pulse Resp B/P (MAP) Pulse Ox O2 Delivery O2 Flow Rate FiO2 05/20/19 15:37 98.1 51 18 123/73 98 Room Air Status: improved Disposition: HOME, SELF-CARE Condition: Improved Scripts Lorazepam* (ATIVAN*) 0.5 Mg Tablet 0.5 MG ORAL THREE TIMES A DAY PRN for anxiety, #6 TAB Prov: Jack Murphy MD 05/20/19 Jack Murphy MD May 20, 2019 10:35
[2019-05-20 10:43] LABS: BASOPHILS % (AUTO) 0.9 % (0.0-2.0); EOSINOPHILS % (AUTO) 0.4 % (0.0-3.0); HEMATOCRIT 44.1 % (37.0-47.0); HEMOGLOBIN 14.5 G/DL (12.0-16.0); LYMPHOCYTES % (AUTO) 26.9 % (20.0-45.0); MEAN CORPUSCULAR VOLUME 92 FL (80-99); MONOCYTES % (AUTO) 4.6 % (1.0-10.0); NEUTROPHILS % (AUTO) 67.1 % (45.0-75.0); PLATELET COUNT 278 K/UL (150-450); RED CELL DISTRIBUTION WIDTH 12.7 % (11.6-14.8); WHITE BLOOD COUNT 8.5 K/UL (4.8-10.8)
[2019-05-20 10:49] LABS: ANION GAP 9 mmol/L (5-15); BLOOD UREA NITROGEN 12 mg/dL (7-18); CALCIUM 9.1 MG/DL (8.5-10.1); CARBON DIOXIDE 24 MMOL/L (21-32); CHLORIDE 107 MMOL/L (98-107); CREATININE 0.8 MG/DL (0.55-1.30); POTASSIUM 3.8 MMOL/L (3.5-5.1); SODIUM 140 MMOL/L (136-145)
[2019-05-20 10:52] LABS: ALANINE AMINOTRANSFERASE 23 U/L (12-78); ALBUMIN 3.8 G/DL (3.4-5.0); ALKALINE PHOSPHATASE 69 U/L (46-116); ASPARTATE AMINO TRANSFERASE 17 U/L (15-37); BILIRUBIN,TOTAL 0.3 MG/DL (0.2-1.0); CREATINE KINASE 80 U/L (26-308)
[2019-05-20 11:20] LABS: APPEARANCE,URINE CLEAR; BILIRUBIN, URINE NEGATIVE (NEGATIVE); GLUCOSE, URINE (UA) NEGATIVE (NEGATIVE); KETONES,URINE NEGATIVE (NEGATIVE); LEUKOCYTE ESTERASE ,URINE NEGATIVE (NEGATIVE); NITRITE,URINE NEGATIVE (NEGATIVE); PH,URINE 5 (4.5-8.0); PROTEIN,URINE NEGATIVE (NEGATIVE); UROBILINOGEN,URINE NORMAL MG/DL (0.0-1.0)
[2019-05-20 11:46] LABS: COLOR,URINE YELLOW
[2019-05-20 12:05] VITALS: BP 124/74
[2019-05-20 14:05] VITALS: BP 117/70
--- NOTE | 2019-05-20 14:52 | Diagnostic Imaging Report ---
Indication: Reason For Exam: DYSPNEA Technique: Single AP view of the chest. Comparison: Chest radiograph dated 08/20/2018 Findings: The cardiomediastinal silhouette is within normal limits. There is no focal consolidation, pneumothorax or pleural effusion. Osseous structures demonstrate no acute abnormality. Lower thoracic kyphoplasty changes. IMPRESSION: No radiographic evidence of acute cardiopulmonary disease.
[2019-05-20] MEDS ORDERED: ATIVAN0.5 MG ORAL (15:23)
[2019-05-20 15:37] VITALS: BP 123/73
--- NOTE | 2019-05-20 15:38 | NUR ---
ER DISCHARGE NOTE: Patient is cleared to be discharged per ERMD, pt is aox4, on room air, with stable vital signs. pt was given dc and prescription instructions, pt was able to verbalize understanding, pt id band and iv site removed without complications. pt is able to ambulate with steady gait. pt took all belongings.
== END 2019-05-20 15:38 | disposition home or self-care (01) ==
LOC: EMR 10:48
DX: F41.9 Anxiety disorder, unspecified (principal); E86.0 Dehydration; T43.225A Adverse effect of selective serotonin reuptake inhibitors, initial encounter; Y92.9 Unspecified place or not applicable; R30.0 Dysuria; I44.5 Left posterior fascicular block; E66.3 Overweight; Z68.27 Body mass index [BMI] 27.0-27.9, adult
CPT/HCPCS: 36415; 71045; 80053; 81003; 82550; 83880; 84484; 85025; 85610; 85730; 93005; 96361; 96374; 96375; 99284; J1885; J7040

== ENCOUNTER 2019-05-23 11:10 | Emergency (ER) | payer OTHER ==
[~2019-05-23] VITALS: Ht 152.4 cm; Wt 59.0 kg
[~2019-05-23 11:10] MED LIST changes: +ATIVAN0.5 MG ORAL
[2019-05-23 11:18] VITALS: BP 128/76
--- NOTE | 2019-05-23 11:20 | NUR ---
ED Nurse Note: pt walked in to ER c/o anxiousness unresolved since she was seen by doctor here at [facility]. pt aao x4 and ambulatory and calm and cooperative. denied suicidal thought. skin clean and intact. per pt, her pcp prescribed Zoloft and pt stopped taking it and anxiousness started.
--- NOTE | 2019-05-23 12:18 | NUR ---
ED Nurse Note: ERMD at bedside.
--- NOTE | 2019-05-23 12:34 | Emergency Room Report ---
History of Present Illness General Chief Complaint: Behavioral Complaint Source: Patient Present Illness HPI Disclaimer: Please note that this report is being documented using [employer] technology. This can lead to erroneous entry secondary to incorrect interpretation by the dictating instrument. HPI: 58-year-old female with a history of anxiety presents for evaluation of panic attacks. Seen in the emergency department earlier this week on 05/20 for symptoms of restlessness, lightheadedness, nausea which she attributes to panic attacks. States in the past she was treated with lorazepam and was recently started on Zoloft. She has been taking Zoloft since her discharge from the emergency department on 05/20. She states she has having intermittent episodes throughout the week but is currently resting comfortably. She was previously treated with Lorazepam but no longer has a prescription. She has not followed up with her PMD since her last ER visit. PMH: Anxiety, recurrent urinary tract infections PSH: Review chart Allergies: Denies Social Hx: Denies alcohol or drug abuse Allergies: Coded Allergies: No Known Allergies (Unverified , 09/26/12) Patient History Last Menstrual Period: none Nursing Documentation-PMH Past Medical History: No History, Except For Hx Cardiac Problems: No - Back surgery in 2013 due to fall injury, osteoporosis Review of Systems All Other Systems: negative except mentioned in HPI Physical Exam Vital Signs Date Time Temp Pulse Resp B/P (MAP) Pulse Ox O2 Delivery O2 Flow Rate FiO2 05/23/19 11:13 98.2 68 18 128/76 (93) 97 Room Air General: Awake and alert, no acute distress, calm and well-appearing HEENT: NC/AT. EOMI. PERRLA. No nystagmus. Cardiovascular: RRR. S1 and S2 normal. No murmur appreciated Resp: Normal work of breathing. No cough, wheezing or crackles appreciated Abdomen: Abdomen is soft, nondistended. Nontender Skin: Intact. No abrasions, laceration or rash over the exposed skin MSK: Normal tone and bulk. Moving all extremities. No obvious deformity. Neuro: Awake and alert. Mentating appropriately. Calm, cooperative with exam. No nystagmus. Ambulating without difficulty. Medical Decision Making Diagnostic Impression: Primary Impression: Anxiety ER Course 58-year-old female presents for evaluation of anxiety symptoms. She was describing palpitations, difficulty breathing, flushed feeling that quickly resolved. She has been having this intermittently for the past week and was seen in the emergency department several days ago with similar presentation. She underwent an extensive work-up which was largely unremarkable. She is also complaining of some dysuria though her urinalysis was unremarkable yesterday. We will repeat this and treat with a dose of benzodiazepines. I discussed with the patient at length that she needs to follow-up with her PMD and possibly be referred to psychiatry for these recurrent episodes of anxiety. She states that she starts to think about different life events and then cannot stop herself from doing so. The symptoms resolve however they happen several times a day. Sometimes they are very severe as today prompting medical evaluation. She is currently calm and states that her symptoms have resolved though she is still slightly restless. States she is no longer taking the Zoloft that she had taken prior to her last ER visit. Will reevaluate after medication Laboratory Tests Test 05/23/19 14:21 Urine Color Pale yellow Urine Appearance Clear Urine pH 7 (4.5-8.0) Urine Specific [place] 1.005 (1.005-1.035) Urine Protein Negative (NEGATIVE) Urine Glucose (UA) Negative (NEGATIVE) Urine Ketones Negative (NEGATIVE) Urine Blood Negative (NEGATIVE) Urine Nitrite Negative (NEGATIVE) Urine Bilirubin Negative (NEGATIVE) Urine Urobilinogen Normal MG/DL (0.0-1.0) Urine Leukocyte Esterase Negative (NEGATIVE) Reevaluation Time: 15:00 Last Vital Signs Date Time Temp Pulse Resp B/P (MAP) Pulse Ox O2 Delivery O2 Flow Rate FiO2 05/23/19 11:18 98.2 68 18 128/76 97 Room Air Status: improved Reevaluation Impression Patient feels improved after receiving 2 mg oral Valium. I explained to her the need for evaluation by a mental health professional and provided her with resources in her discharge paperwork to do so. She must follow-up with her PMD and she states that she will at that next available appointment. I did give her 5 0.5 tablets of Lorazepam to use only when needed. I explained to her that the emergency department is not an appropriate place to receive long-term anxiolytic medication and she understands this. She understands the need for follow-up with PMD and psychiatry as well as reasons to return to the emergency department. Her urinalysis was repeated due to persistent dysuria however is again unremarkable. She will follow-up with her PMD. Disposition: HOME, SELF-CARE Condition: Improved Scripts Lorazepam* (LORAZEPAM*) 0.5 Mg Tablet 0.5 MG ORAL THREE TIMES A DAY PRN for For Anxiety, #5 TAB Prov: Jr Roberts MD 05/23/19 Referrals: [facility],REFERRING (PCP) Jr Roberts MD May 23, 2019 12:34
[2019-05-23 13:18] VITALS: BP 105/65
--- NOTE | 2019-05-23 13:47 | NUR ---
ED Nurse Note: resting in bed. no acute distress noted.
[2019-05-23 14:29] LABS: APPEARANCE,URINE CLEAR; BILIRUBIN, URINE NEGATIVE (NEGATIVE); COLOR,URINE PALE YELLOW; GLUCOSE, URINE (UA) NEGATIVE (NEGATIVE); KETONES,URINE NEGATIVE (NEGATIVE); LEUKOCYTE ESTERASE ,URINE NEGATIVE (NEGATIVE); NITRITE,URINE NEGATIVE (NEGATIVE); PH,URINE 7 (4.5-8.0); PROTEIN,URINE NEGATIVE (NEGATIVE); UROBILINOGEN,URINE NORMAL MG/DL (0.0-1.0)
[2019-05-23] MEDS ORDERED: LORAZEPAM0.5 MG ORAL (14:38)
[2019-05-23 14:45] VITALS: BP 118/74
== END 2019-05-23 14:45 | disposition home or self-care (01) ==
LOC: EMR 11:56
DX: F41.9 Anxiety disorder, unspecified (principal); M81.0 Age-related osteoporosis without current pathological fracture; Z87.440 Personal history of urinary (tract) infections
CPT/HCPCS: 81003; 99283

== ENCOUNTER 2019-06-22 13:26 | Emergency (ER) | payer OTHER ==
[~2019-06-22] VITALS: Ht 152.4 cm; Wt 59.0 kg
[~2019-06-22 13:26] MED LIST changes: +LORAZEPAM0.5 MG ORAL
--- NOTE | 2019-06-22 13:57 | NUR ---
ED Nurse Note: PT WALKED IN TO ER TODAY FROM HOME. AOX4. PT C/O HEART PALPITATIONS X 1 MONTH. PT STATES SHE FEELS THEM EVERY DAY AND BELIEVES IT MAY BE DUE TO ANXIETY. PT DENIES CHEST PAIN OR SOB. PT STATES SHE SAW HER PMD AND WAS REFERRED TO [facility]RI[facility] BUT HAS AN APPOINTMENT ONE MONTH FROM NOW. PT DENIES NAUSEA OR VOMITING. PT DENIES DRUG OR ALCOHOL USE.
[2019-06-22] MEDS ORDERED: LORazepam Inj 2mg/ml 1ml IV ONE (14:00)
[2019-06-22 14:01] VITALS: BP 124/74
--- NOTE | 2019-06-22 14:18 | Emergency Room Report ---
History of Present Illness General Chief Complaint: Palpitations Source: Patient Present Illness HPI 58-year-old female, history of anxiety multiple recurrent visits to the emergency room presents with palpations x1 month, patient states that she will not be able to see her psychiatrist soon enough, she denies any aggravating or alleviating factors, she is states she feels anxious, symptoms are constant severity is moderate denies any SI HI, no chest pain no abdominal pain patient presents for evaluation of Allergies: Coded Allergies: No Known Allergies (Unverified , 09/26/12) Patient History Past Medical History: see triage record Last Menstrual Period: na Reviewed Nursing Documentation: PMH: Agreed; PSxH: Agreed Nursing Documentation-PMH Past Medical History: No History, Except For Hx Cardiac Problems: No - Back surgery in 2012 due to fall injury, osteoporosis History Of Psychiatric Problem: Yes - anxiety Review of Systems All Other Systems: negative except mentioned in HPI Physical Exam Vital Signs Date Time Temp Pulse Resp B/P (MAP) Pulse Ox O2 Delivery O2 Flow Rate FiO2 06/22/19 13:51 98.1 66 22 127/78 (94) 97 Room Air Sp02 EP Interpretation: reviewed, normal General Appearance: well appearing, no apparent distress, alert Head: normocephalic, atraumatic Eyes: bilateral eye PERRL, bilateral eye EOMI ENT: uvula midline, moist mucus membranes Neck: supple, thyroid normal, supple/symm/no masses Respiratory: lungs clear, no respiratory distress, no retraction, no accessory muscle use Cardiovascular #1: normal peripheral pulses, regular rate, rhythm, no edema, no gallop, no murmur Gastrointestinal: non tender, soft, no guarding, no rebound Musculoskeletal: normal inspection Neurologic: alert, oriented x3 Psychiatric: anxious Skin: no rash, warm/dry Medical Decision Making Diagnostic Impression: Primary Impression: Palpitations Additional Impression: Anxiety attack ER Course 58-year-old female presents with palpitations anxiety. Alludes palpitations, panic attack, ACS, hyperthyroidism Patient given Ativan, reevaluation at 4:15 PM, patient is back to baseline feels better Troponin negative, EKG negative chest x-ray negative Patient counseled she needs to follow-up with psychiatry disposition home with return precautions Laboratory Tests Test 06/22/19 14:20 White Blood Count 11.2 K/UL (4.8-10.8) H Red Blood Count 4.83 M/UL (4.20-5.40) Hemoglobin 14.6 G/DL (12.0-16.0) Hematocrit 44.3 % (37.0-47.0) Mean Corpuscular Volume 92 FL (80-99) Mean Corpuscular Hemoglobin 30.3 PG (27.0-31.0) Mean Corpuscular Hemoglobin Concent 33.0 G/DL (32.0-36.0) Red Cell Distribution Width 12.9 % (11.6-14.8) Platelet Count 293 K/UL (150-450) Mean Platelet Volume 6.5 FL (6.5-10.1) Neutrophils (%) (Auto) 60.7 % (45.0-75.0) Lymphocytes (%) (Auto) 29.7 % (20.0-45.0) Monocytes (%) (Auto) 7.6 % (1.0-10.0) Eosinophils (%) (Auto) 1.2 % (0.0-3.0) Basophils (%) (Auto) 0.9 % (0.0-2.0) Urine Color Yellow Urine Appearance Clear Urine pH 7 (4.5-8.0) Urine Specific [place] 1.015 (1.005-1.035) Urine Protein Negative (NEGATIVE) Urine Glucose (UA) Negative (NEGATIVE) Urine Ketones Negative (NEGATIVE) Urine Blood Negative (NEGATIVE) Urine Nitrite Negative (NEGATIVE) Urine Bilirubin Negative (NEGATIVE) Urine Urobilinogen Normal MG/DL (0.0-1.0) Urine Leukocyte Esterase Negative (NEGATIVE) Sodium Level 144 MMOL/L (136-145) Potassium Level 4.2 MMOL/L (3.5-5.1) Chloride Level 108 MMOL/L (98-107) H Carbon Dioxide Level 24 MMOL/L (21-32) Anion Gap 13 mmol/L (5-15) Blood Urea Nitrogen 14 mg/dL (7-18) Creatinine 0.9 MG/DL (0.55-1.30) Estimate Glomerular Filtration Rate > 60 mL/min (>60) Glucose Level 98 MG/DL (74-106) Calcium Level 9.0 MG/DL (8.5-10.1) Total Bilirubin 0.3 MG/DL (0.2-1.0) Aspartate Amino Transferase (AST) 17 U/L (15-37) Alanine Aminotransferase (ALT) 17 U/L (12-78) Alkaline Phosphatase 73 U/L (46-116) Total Creatine Kinase 64 U/L (26-308) Creatine Kinase MB 0.6 NG/ML (0.0-3.6) Creatine Kinase MB Relative Index 0.9 Troponin I 0.000 ng/mL (0.000-0.056) Total Protein 7.6 G/DL (6.4-8.2) Albumin 3.8 G/DL (3.4-5.0) Globulin 3.8 g/dL Albumin/Globulin Ratio 1.0 (1.0-2.7) Lipase 198 U/L (73-393) Thyroid Stimulating Hormone (TSH) 0.850 uiU/mL (0.358-3.740) Free Thyroxine 0.90 NG/DL (0.76-1.46) Free Triiodothyronine 2.3 pg/mL (2.3-4.2) Urine Opiates Screen Negative (NEGATIVE) Urine Barbiturates Screen Negative (NEGATIVE) Phencyclidine (PCP) Screen Negative (NEGATIVE) Urine Amphetamines Screen Negative (NEGATIVE) Urine Benzodiazepines Screen Negative (NEGATIVE) Urine Cocaine Screen Negative (NEGATIVE) Urine Marijuana (THC) Screen Negative (NEGATIVE) EKG Diagnostic Results EKG Time: 14:05 EP Interpretation: Sinus bradycardia, rate 58, QTc 398, no acute ST elevations , normal axis Rhythm Strip Diag. Results Rhythm Strip Time: 14:26 EP Interpretation: yes Rate: 60 Rhythm: NSR, no PVC's, no ectopy Chest X-Ray Diagnostic Results Chest X-Ray Diagnostic Results : Chest X-Ray Ordered: Yes # of Views/Limited/Complete: 1 View Indication: Other - palpitations Interpretation: no consolidation, no effusion, no pneumothorax, no acute cardiopulmonary disease Impression: No acute disease Electronically Signed by: Carlos Staples MD Last Vital Signs Date Time Temp Pulse Resp B/P (MAP) Pulse Ox O2 Delivery O2 Flow Rate FiO2 06/22/19 14:01 98.2 72 18 124/74 98 Room Air Disposition: HOME, SELF-CARE Condition: Stable [facility] Patient Instructions: Palpitations, Panic Attacks Additional Instructions: The patient was provided with discharge instructions, notified to follow-up with a primary care doctor and or specialist in the next 24-48 hours, and to return to the ED if they have worsening of their symptoms. Please note that this report is being documented using [employer] technology. This can lead to erroneous entry secondary to incorrect interpretation by the dictating instrument. Carlos Staples MD Jun 22, 2019 14:18
[2019-06-22 14:37] LABS: APPEARANCE,URINE CLEAR; BILIRUBIN, URINE NEGATIVE (NEGATIVE); GLUCOSE, URINE (UA) NEGATIVE (NEGATIVE); KETONES,URINE NEGATIVE (NEGATIVE); LEUKOCYTE ESTERASE ,URINE NEGATIVE (NEGATIVE); NITRITE,URINE NEGATIVE (NEGATIVE); PH,URINE 7 (4.5-8.0); PROTEIN,URINE NEGATIVE (NEGATIVE); UROBILINOGEN,URINE NORMAL MG/DL (0.0-1.0)
[2019-06-22 14:39] LABS: COLOR,URINE YELLOW
[2019-06-22 14:40] LABS: BASOPHILS % (AUTO) 0.9 % (0.0-2.0); EOSINOPHILS % (AUTO) 1.2 % (0.0-3.0); HEMATOCRIT 44.3 % (37.0-47.0); HEMOGLOBIN 14.6 G/DL (12.0-16.0); LYMPHOCYTES % (AUTO) 29.7 % (20.0-45.0); MEAN CORPUSCULAR VOLUME 92 FL (80-99); MONOCYTES % (AUTO) 7.6 % (1.0-10.0); NEUTROPHILS % (AUTO) 60.7 % (45.0-75.0); PLATELET COUNT 293 K/UL (150-450); RED BLOOD COUNT 4.83 M/UL (4.20-5.40); RED CELL DISTRIBUTION WIDTH 12.9 % (11.6-14.8); WHITE BLOOD COUNT 11.2 K/UL (4.8-10.8)
[2019-06-22 15:58] LABS: ANION GAP 13 mmol/L (5-15); BLOOD UREA NITROGEN 14 mg/dL (7-18); CARBON DIOXIDE 24 MMOL/L (21-32); CHLORIDE 108 MMOL/L (98-107); CREATININE 0.9 MG/DL (0.55-1.30); POTASSIUM 4.2 MMOL/L (3.5-5.1); SODIUM 144 MMOL/L (136-145)
[2019-06-22 16:13] LABS: ALANINE AMINOTRANSFERASE 17 U/L (12-78); ALBUMIN 3.8 G/DL (3.4-5.0); ALKALINE PHOSPHATASE 73 U/L (46-116); ASPARTATE AMINO TRANSFERASE 17 U/L (15-37); BILIRUBIN,TOTAL 0.3 MG/DL (0.2-1.0); CKMB 0.6 NG/ML (0.0-3.6); CREATINE KINASE 64 U/L (26-308)
--- NOTE | 2019-06-22 16:20 | NUR ---
ED Nurse Note: PT LAYING PEACEFULLY IN BED IN NAD. AOX4. DISCHARGE PAPERWORK EXPLAINED TO PT. PT VERBALIZES UNDERSTANDING AND ALL QUESTIONS ANSWERED. DISCHARGE PAPERWORK GIVEN TO PT, IV AND ID WRISTBAND REMOVED. PT WALKED OUT OF ER WITH STEADY GAIT ACCOMPANIED BY FRIEND. VSS.
[2019-06-22 16:21] VITALS: BP 112/72
--- NOTE | 2019-06-23 11:04 | Diagnostic Imaging Report ---
Indication: Dyspnea Comparison: 05/20/2019 A single view chest radiograph was obtained. Findings: Cardiomediastinal appearance is within normal limits for age. The lungs are clear. Pulmonary vascularity is appropriate. The diaphragmatic contour is smooth and costophrenic angles are sharp. No pleural effusions are identified. The bones are unremarkable. Impression: No acute findings
--- NOTE | 2019-06-23 18:37 | Cardiology Report ---
APPROVED REPORT EKG Measurement Heart [id number] Sinus bradycardia Nonspecific ST abnormality Abnormal ECG
== END 2019-06-22 16:55 | disposition home or self-care (01) ==
LOC: EMR 13:58
DX: F41.9 Anxiety disorder, unspecified (principal); R00.2 Palpitations; M81.0 Age-related osteoporosis without current pathological fracture; R00.1 Bradycardia, unspecified
CPT/HCPCS: 36415; 71045; 80053; 80307; 81003; 82550; 82553; 83690; 84439; 84443; 84481; 84484; 85025; 93005; 96361; 96374; 99284

== ENCOUNTER 2020-12-10 12:27 | Emergency (ER) | payer MEDICAID, OTHER ==
[~2020-12-10] VITALS: Ht 152.4 cm; Wt 61.2 kg
--- NOTE | 2020-12-10 12:42 | NUR ---
pt arrives to ER with complaints of anxiety starting yesterday. pt denies previous history of anxiety. pt describes her symptoms as being anxious, chest palpitations, and nausea. pt has attempetd to take 25mg of sertraline without any relief. pt denies new stressors in life.
[2020-12-10 12:54] VITALS: BP 137/74
--- NOTE | 2020-12-10 12:59 | Emergency Room Report ---
History of Present Illness General Chief Complaint: General Complaint Source: Patient Present Illness HPI Disclaimer: Please note that this report is being documented using [employer] technology. This can lead to erroneous entry secondary to incorrect interpretation by the dictating instrument. HPI: 60-year-old female presents for anxiety. She states she has had anxiety for the past 2 days. She does have a history of anxiety and has been seen here for the same in the past. She had taken Zoloft in the past but currently not on any medication. She has also had success with lorazepam. She did take a sertraline prior to arrival but this medication belongs to her father. She denies any chest pain or shortness of breath but reports mild palpitations. No nausea vomiting diarrhea or fever. PMH: Anxiety PSH: Reviewed Social Hx: She denies any smoking drinking or illicit drug use Allergies: Coded Allergies: No Known Allergies (Unverified , 09/26/12) COVID-19 Screening Contact w/high risk pt: No Experienced COVID-19 symptoms?: No COVID-19 Testing performed [employer] PRESIDENT: No COVID-19 Screening: Negative COVID-19 Patient History Reviewed Nursing Documentation: PMH: Agreed; PSxH: Agreed Nursing Documentation-PMH Hx Cardiac Problems: No - Back surgery in 2013 due to fall injury, osteoporosis Hx Hypertension: No Hx Pacemaker: No Hx Asthma: No Hx COPD: No Hx Diabetes: No Hx Cancer: No Hx Gastrointestinal Problems: No Hx Dialysis: No History Of Psychiatric Problem: No Hx Neurological Problems: No Hx Cerebrovascular Accident: No Hx Seizures: No Review of Systems All Other Systems: negative except mentioned in HPI Physical Exam Vital Signs Date Time Temp Pulse Resp B/P (MAP) Pulse Ox O2 Delivery O2 Flow Rate FiO2 12/10/20 12:35 98.1 68 18 127/81 (96) 95 Room Air Sp02 EP Interpretation: reviewed, normal General Appearance: well appearing, no apparent distress Head: normocephalic, atraumatic Eyes: bilateral eye PERRL, bilateral eye EOMI ENT: hearing grossly normal, moist mucus membranes Neck: full range of motion, supple Respiratory: lungs clear, normal breath sounds, no rhonchi, no respiratory distress, no retraction, no wheezing Cardiovascular #1: normal peripheral pulses, regular rate, rhythm, no murmur Gastrointestinal: non tender, soft, non-distended, no guarding Neurologic: alert, oriented x3, no focal defects Psychiatric: no suicidal/homicidal ideation, anxious Skin: normal color, warm/dry Medical Decision Making Diagnostic Impression: Primary Impression: Anxiety ER Course Patient presented for anxiety. Differential included but not limited to anxiety reaction, panic disorder, less likely emergent medical pathology such as ACS or infectious process. Vital signs were stable. EKG was normal sinus rhythm. She was in no acute distress. In the ER she was given lorazepam with improvement of her symptoms. Will be discharged home with lorazepam as needed for anxiety and follow-up with PMD to discuss referral to mental health. EKG Diagnostic Results EP Interpretation: 64 Rate: normal Rhythm: NSR ST Segments: no acute changes Rhythm Strip Diag. Results EP Interpretation: yes Rate: 60 Rhythm: NSR, no PVC's, no ectopy Last Vital Signs Date Time Temp Pulse Resp B/P (MAP) Pulse Ox O2 Delivery O2 Flow Rate FiO2 12/10/20 12:35 98.1 68 18 127/81 (96) 95 Room Air Disposition: HOME, SELF-CARE Condition: Improved Referrals: [facility] (PCP) Nadeem Pérez M.D. Dec 10, 2020 12:59
[2020-12-10] MEDS ORDERED: LORazepam 1mg tab ORAL ONE (13:00)
[2020-12-10] MEDS ORDERED: ATIVAN0.5 MG ORAL (13:03)
--- NOTE | 2020-12-10 13:47 | NUR ---
pt cleared for discharge by md. pt educated regarding symptoms of anxiety, when to seek help and external resources.
[2020-12-10 13:49] VITALS: BP 115/68
--- NOTE | 2020-12-10 13:49 | NUR ---
ED Nurse Note: Pt cleared by health care Provider for discharge. DC instructions/prescription was given and explained to pt and verbalized understanding of teachings. All medical deviecs such as ID band removed. Pt is AAO x4, ambulatory and left with all personal belongings.
== END 2020-12-10 13:52 | disposition home or self-care (01) ==
LOC: EMR 12:45
DX: F41.9 Anxiety disorder, unspecified (principal)
CPT/HCPCS: 99282